=== PATIENT | female | born 1960 | race Caucasian/White ===

== ENCOUNTER 2019-04-03 14:47 | Inpatient (IN) ==
[2019-04-03] MEDS ORDERED: Ondansetron 4 MG/2 ML VIAL IVP ONE (15:11)
[2019-04-03] MEDS ORDERED: *HR* OxyCODONE/APAP 10/325 TABLET PO ONE (15:35)
[2019-04-03 15:40] LABS: Basophils # 0.1 K/mcL (0.0-0.2); Basophils % 0.9 %; Eosinophils # 0.1 K/mcL (0.0-0.6); Eosinophils % 0.9 %; Hematocrit 48.1 % (35.3-44.9); Hemoglobin 15.7 g/dL (11.5-15.4); Immature Granulocytes % 0.6 % (0-4); Lymphocytes # 0.9 K/mcL (0.6-4.6); Lymphocytes % 13.1 %; Mean Corpuscular HGB Conc 32.6 g/dL (31.6-35.5); Mean Corpuscular Hemoglobin 30.6 pg (28.0-33.3); Mean Corpuscular Volume 93.8 fL (83.0-100.0); Mean Platelet Volume 12.7 fL (9.4-12.4); Monocytes # 0.3 K/mcL (0.0-1.3); Monocytes % 4.9 %; Neutrophils # 5.4 K/mcL (1.6-8.9); Platelet Count 127 K/mcL (140-400); Red Blood Count 5.13 M/mcL (3.82-4.97); Red Cell Distribution Width 14.4 % (11.5-14.5); Segmented Neutrophils % 79.6 %; White Blood Count 6.8 K/mcL (4.3-11.1)
[2019-04-03] MEDS: 0.9 % Sodium Chloride 1,000 ML IVC SCH ×3 (15:46→21:41)
[2019-04-03 15:57] LABS: Albumin 3.5 g/dL (3.5-5.7); Albumin/Globulin Ratio 1.6 (1.1-2.2); Bilirubin,Total 0.7 mg/dL (0.3-1.0); Calcium 8.3 mg/dL (8.6-10.3); Globulin 2.2 g/dL (2.4-3.5); Potassium 3.7 mEq/L (3.5-5.1); Total Protein 5.7 g/dL (6.4-8.9)
[2019-04-03 16:14] LABS: Platelet Estimate Normal (Normal)
[2019-04-03 16:27] LABS: Bilirubin,Urine Negative (Negative); Blood,Urine Large (Negative); Clarity,Urine Clear (Clear); Color,Urine Yellow (Yellow); Glucose,Urine (UA) 250 mg/dL (Normal); Ketones,Urine Negative (Negative); Leukocyte Esterase,Urine Trace (Negative); Nitrite,Urine Negative (Negative); PH,Urine 5.5 pH Units (5.0-8.0); Protein,Urine 100 mg/dL (Neg-Trace); Specific Gravity,Urine 1.018 (1.010-1.025); Urobilinogen,Urine Normal (Normal)
[2019-04-03 16:29] LABS: Bacteria,Urine None Seen per hpf (None-Few); Hyaline Casts,Urine None Seen per lpf (None-Few); RBC,Urine TNTC per hpf (0-3); Squamous Epithelial Cell,Urine Many per lpf (None-Few)
[2019-04-03] MEDS ORDERED: Naloxone 0.4 MG/ML INJ IVP PRN (17:07)
[2019-04-03] MEDS ORDERED: Acetaminophen 325 MG TABLET PO PRN (17:07)
[2019-04-03] MEDS ORDERED: *HR* Metoprolol 5 MG/5 ML VIAL IVP PRN (17:45)
[2019-04-03] MEDS ORDERED: cefTRIAXone 2,000 MG in Water for inj. (sterile) 20 ML IVP SCH (18:00)
[2019-04-03] MEDS ORDERED: traMADol 50 MG TABLET PO ONE (21:08)
[2019-04-04] MEDS: Ondansetron 4 MG/2 ML VIAL IVP PRN (02:00)
[2019-04-04 02:44] LABS: Basophils % 0.6 %; Eosinophils % 0.4 %; Hematocrit 44.8 % (35.3-44.9); Hemoglobin 14.3 g/dL (11.5-15.4); Immature Granulocytes % 0.9 % (0-4); Lymphocytes # 0.6 K/mcL (0.6-4.6); Lymphocytes % 13.6 %; Mean Corpuscular HGB Conc 31.9 g/dL (31.6-35.5); Mean Corpuscular Hemoglobin 30.2 pg (28.0-33.3); Mean Corpuscular Volume 94.5 fL (83.0-100.0); Monocytes # 0.5 K/mcL (0.0-1.3); Monocytes % 9.6 %; Neutrophils # 3.5 K/mcL (1.6-8.9); Platelet Count 106 K/mcL (140-400); Red Blood Count 4.74 M/mcL (3.82-4.97); Red Cell Distribution Width 14.5 % (11.5-14.5); Segmented Neutrophils % 74.9 %; White Blood Count 4.7 K/mcL (4.3-11.1)
[2019-04-04 03:05] LABS: Adenovirus F 40/41 PCR Not detected (Not detect); Astrovirus PCR Not detected (Not detect); C.difficile Toxin A/B Gene PCR Not detected (Not detect); Campylobacter by PCR Not detected (Not detect); Cryptosporidium by PCR Not detected (Not detect); Cyclospora cayetanensis PCR Not detected (Not detect); E. coli O157 by PCR Not detected (Not detect); Entamoeba histolytica PCR Not detected (Not detect); Enteroaggregative E.coli(EAEC) Not detected (Not detect); Enteropathogenic E.coli(EPEC) Not detected (Not detect); Enterotoxigenic E.coli (ETEC) Not detected (Not detect); Giardia lamblia PCR Not detected (Not detect); Norovirus GI/GII PCR Not detected (Not detect); Plesiomonas shigelloides PCR Not detected (Not detect); Rotavirus A PCR Not detected (Not detect); Salmonella PCR Not detected (Not detect); Sapovirus PCR Not detected (Not detect); Shig/EnteroinvasiveE coli EIEC Not detected (Not detect); Shigalike tox-prod E coli STEC Not detected (Not detect); Vibrio PCR Not detected (Not detect); Vibrio cholerae PCR Not detected (Not detect); Yersinia enterocolitica PCR Not detected (Not detect)
[2019-04-04 03:06] LABS: Calcium 8.1 mg/dL (8.6-10.3); Magnesium 2.1 mg/dL (1.6-2.6); Phosphorous 4.6 mg/dL (2.7-4.5); Potassium 3.8 mEq/L (3.5-5.1)
[2019-04-04 03:08] LABS: Platelet Estimate Decreased (Normal)
[2019-04-04] MEDS ORDERED: Acetaminophen IV 1,000 MG/100 ML INFUS..BTL IVPB ONE (04:52)
[2019-04-04] MEDS: 0.9 % Sodium Chloride 1,000 ML IVC SCH (08:29)
[2019-04-04] MEDS ORDERED: cefTRIAXone 2,000 MG in 0.9 % Sodium Chloride Mini Bag 100 ML IVPB SCH (09:00)
[2019-04-04] MEDS: Diltiazem CD (24hr) 180 MG CAPSULE PO SCH (12:06)
[2019-04-04] MEDS: *HR* OxyCODONE Immed Rel 5 MG TABLET PO PRN ×2 (12:32→20:08)
[2019-04-04] MEDS: Nystatin SUSP 5 ML UD.LIQ PO SCH ×2 (12:33→19:36)
[2019-04-04] MEDS ORDERED: traZODone 50 MG TABLET PO PRN (18:32)
[2019-04-04] MEDS: FLUoxetine 20 MG CAPSULE PO SCH (20:07)
[2019-04-04] MEDS: Ringers Solution, Lactated 1,000 ML IVC SCH (20:21)
[2019-04-05] MEDS: Nystatin SUSP 5 ML UD.LIQ PO SCH ×4 (01:23→16:15)
[2019-04-05] MEDS: Ondansetron 4 MG/2 ML VIAL IVP PRN (03:38)
[2019-04-05] MEDS: *HR* OxyCODONE Immed Rel 5 MG TABLET PO PRN ×4 (03:38→22:39)
[2019-04-05] MEDS: Ringers Solution, Lactated 1,000 ML IVC SCH ×2 (03:39→16:22)
[2019-04-05 04:11] LABS: Basophils % 0.3 %; Eosinophils # 0.1 K/mcL (0.0-0.6); Eosinophils % 0.7 %; Hematocrit 46.1 % (35.3-44.9); Hemoglobin 14.9 g/dL (11.5-15.4); Immature Granulocytes % 3.4 % (0-4); Lymphocytes % 14.3 %; Mean Corpuscular HGB Conc 32.3 g/dL (31.6-35.5); Mean Corpuscular Hemoglobin 30.8 pg (28.0-33.3); Mean Corpuscular Volume 95.4 fL (83.0-100.0); Mean Platelet Volume 12.3 fL (9.4-12.4); Monocytes # 1.1 K/mcL (0.0-1.3); Neutrophils # 4.8 K/mcL (1.6-8.9); Platelet Count 169 K/mcL (140-400); Red Blood Count 4.83 M/mcL (3.82-4.97); Red Cell Distribution Width 14.5 % (11.5-14.5); Segmented Neutrophils % 66.3 %
[2019-04-05 04:14] LABS: White Blood Count 7.2 K/mcL (4.3-11.1)
[2019-04-05 04:30] LABS: Calcium 8.9 mg/dL (8.6-10.3); Magnesium 1.8 mg/dL (1.6-2.6); Potassium 4.2 mEq/L (3.5-5.1)
[2019-04-05 05:34] LABS: Platelet Estimate Normal (Normal); Reactive Lymphocytes Present (Not Present)
[2019-04-05] MEDS: Diltiazem CD (24hr) 180 MG CAPSULE PO SCH (09:29)
[2019-04-05] MEDS: FLUoxetine 20 MG CAPSULE PO SCH ×2 (09:30→22:39)
[2019-04-06] MEDS: *HR* OxyCODONE Immed Rel 5 MG TABLET PO PRN ×3 (04:13→17:48)
[2019-04-06] MEDS: Ringers Solution, Lactated 1,000 ML IVC SCH ×2 (06:28→20:58)
[2019-04-06 07:28] LABS: Calcium 9.3 mg/dL (8.6-10.3); Magnesium 2.1 mg/dL (1.6-2.6); Potassium 4.2 mEq/L (3.5-5.1)
[2019-04-06] MEDS: Nystatin SUSP 5 ML UD.LIQ PO SCH ×5 (08:39→22:37)
[2019-04-06] MEDS: FLUoxetine 20 MG CAPSULE PO SCH ×2 (08:59→22:37)
[2019-04-06] MEDS: Diltiazem CD (24hr) 180 MG CAPSULE PO SCH (09:22)
[2019-04-06] MEDS: Ondansetron 4 MG/2 ML VIAL IVP PRN (17:49)
[2019-04-07] MEDS: *HR* OxyCODONE Immed Rel 5 MG TABLET PO PRN ×3 (00:50→19:29)
[2019-04-07 06:37] LABS: BUN/Creatinine Ratio 11 (6-26); Blood Urea Nitrogen 39 mg/dL (6-20); Calcium 9.3 mg/dL (8.6-10.3); Carbon Dioxide 26 mEq/L (23-29); Chloride 106 mEq/L (98-107); Glucose 123 mg/dL (70-105); Osmolality,Calculated 299 (280-300); Potassium 3.9 mEq/L (3.5-5.1); Sodium 139 mEq/L (136-145); eGFR For African Americans 16 (> 60); eGFR For Non-African Americans 13 (> 60)
[2019-04-07] MEDS: Nystatin SUSP 5 ML UD.LIQ PO SCH ×4 (07:39→21:24)
[2019-04-07] MEDS: Diltiazem CD (24hr) 180 MG CAPSULE PO SCH (08:07)
[2019-04-07] MEDS: FLUoxetine 20 MG CAPSULE PO SCH ×2 (08:07→21:24)
[2019-04-07] MEDS: Ringers Solution, Lactated 1,000 ML IVC SCH ×2 (08:08→21:29)
[2019-04-07 14:21] LABS: Creatine Kinase < 10 Units/L (30-223); Uric Acid 7.4 mg/dL (2.3-7.6)
[2019-04-07] MEDS: Ondansetron 4 MG/2 ML VIAL IVP PRN (19:24)
[2019-04-07 19:39] LABS: Sodium, Urine 22.9 mEq/L
[2019-04-07] MEDS: Nystatin POWDER 30 GM BOTTLE TP SCH (22:30)
[2019-04-08] MEDS: *HR* OxyCODONE Immed Rel 5 MG TABLET PO PRN ×3 (04:29→20:16)
[2019-04-08 04:55] LABS: Calcium 9.4 mg/dL (8.6-10.3); Potassium 3.9 mEq/L (3.5-5.1)
[2019-04-08] MEDS: Nystatin SUSP 5 ML UD.LIQ PO SCH ×4 (07:43→23:04)
[2019-04-08] MEDS: Diltiazem CD (24hr) 180 MG CAPSULE PO SCH (09:05)
[2019-04-08] MEDS: Nystatin POWDER 30 GM BOTTLE TP SCH ×2 (09:05→20:20)
[2019-04-08] MEDS: FLUoxetine 20 MG CAPSULE PO SCH ×2 (09:05→20:16)
[2019-04-08] MEDS: Ringers Solution, Lactated 1,000 ML IVC SCH ×3 (10:48→20:16)
[2019-04-08] MEDS: Ondansetron 4 MG/2 ML VIAL IVP PRN (12:19)
[2019-04-08] MEDS ORDERED: *HR* Promethazine 25 MG/ML VIAL IVP ONE (14:29)
[2019-04-09] MEDS: Ringers Solution, Lactated 1,000 ML IVC SCH ×2 (04:09→12:27)
[2019-04-09] MEDS: *HR* OxyCODONE Immed Rel 5 MG TABLET PO PRN ×2 (04:14→10:23)
[2019-04-09 06:23] LABS: Calcium 9.2 mg/dL (8.6-10.3); Potassium 3.8 mEq/L (3.5-5.1)
[2019-04-09] MEDS: Nystatin SUSP 5 ML UD.LIQ PO SCH ×2 (08:39→12:22)
[2019-04-09] MEDS: Diltiazem CD (24hr) 180 MG CAPSULE PO SCH (08:46)
[2019-04-09] MEDS: FLUoxetine 20 MG CAPSULE PO SCH (08:46)
[2019-04-09] MEDS: Nystatin POWDER 30 GM BOTTLE TP SCH (10:11)
[2019-04-09 11:59] VITALS: BP 122/70
== END 2019-04-09 15:14 | disposition home or self-care (01) | DRG 469 ==
LOC: 2ANU 14:47 → EMEROOARM 14:47 → SUATTDRO 17:11 → 2ANU 19:36 → SUATTDRO 04-06 18:19
PROVIDERS: ADMIT Internal Medicine; ATTEND Family Medicine

== ENCOUNTER 2021-04-30 12:30 | Inpatient (IN) ==
[2021-04-30] MEDS ORDERED: Ondansetron ODT 4 MG TAB.RAPDIS SL PRN (16:42)
[2021-04-30] MEDS ORDERED: MOM Conc 10 ML UD.LIQ PO PRN (16:42)
[2021-04-30] MEDS ORDERED: Naloxone 0.4 MG/ML INJ IVP PRN (16:42)
[2021-04-30] MEDS ORDERED: Melatonin 3 MG TABLET PO PRN (16:42)
[2021-04-30] MEDS ORDERED: Remdesivir 200 MG in 0.9 % Sodium Chloride 100 ML IVPB ONE (16:54)
[2021-04-30] MEDS ORDERED: cefTRIAXone 1,000 MG in 0.9 % Sodium Chloride Mini Bag 100 ML IVPB SCH (17:00)
[2021-04-30] MEDS ORDERED: *HR* Heparin 5,000 UNIT/ML VIAL IVP ONE (17:08)
[2021-04-30] MEDS ORDERED: *HR* Heparin 5,000 UNIT/ML VIAL IVP PRN ×2 (17:08)
[2021-04-30] MEDS ORDERED: Bisacodyl 10 MG RECTAL SUPPOSITORY RC PRN (17:26)
[2021-04-30] MEDS: Buprenorphine Hcl/Naloxone Hcl [Suboxone 8 Mg-2 Mg] PO SCH (17:56)
[2021-04-30 18:08] LABS: Hemoglobin 11.4 g/dL (11.5-15.4); Mean Corpuscular HGB Conc 29.2 g/dL (31.6-35.5); Mean Corpuscular Hemoglobin 24.8 pg (28.0-33.3); Mean Platelet Volume 10.2 fL (9.4-12.4); Platelet Count 136 K/mcL (140-400); Red Blood Count 4.59 M/mcL (3.82-4.97); White Blood Count 4.6 K/mcL (4.3-11.1)
[2021-04-30] MEDS: Azithromycin 500 MG in 0.9 % Sodium Chloride 250 ML IVPB SCH (18:26)
[2021-04-30] MEDS: Heparin 25,000 UNIT/250 ML 25,000 UNIT/250 ML IV.SOLN IVC SCH (18:27)
[2021-04-30] MEDS: polyethylene glycoL 3350 17 GM POWD.PACK PO SCH (18:28)
[2021-04-30] MEDS: 0.9 % Sodium Chloride 1,000 ML IVC SCH (18:28)
[2021-04-30 18:37] LABS: INR 1.1; Prothrombin Time 12.7 Seconds (9.4-12.1)
[2021-04-30 18:39] LABS: Heparin anti-factor XA UFH < 0.04 IU/mL (0.30-0.70)
[2021-04-30 18:40] LABS: D-Dimer 1019 ng/mLFEU (0-500)
[2021-04-30 20:13] LABS: Albumin 3.2 g/dL (3.5-5.7); Albumin/Globulin Ratio 0.9 (1.1-2.2); Bilirubin,Total 1.2 mg/dL (0.3-1.0); Calcium 8.7 mg/dL (8.6-10.3); Globulin 3.6 g/dL (2.4-3.5); Potassium 3.6 mEq/L (3.5-5.1); Total Protein 6.8 g/dL (6.4-8.9)
[2021-04-30 21:24] LABS: Hematocrit 38.3 % (35.3-44.9)
[2021-05-01 00:36] LABS: Hematocrit 37.5 % (35.3-44.9); Hemoglobin 11.1 g/dL (11.5-15.4)
[2021-05-01 00:58] LABS: Albumin 3.1 g/dL (3.5-5.7); Albumin/Globulin Ratio 0.9 (1.1-2.2); Bilirubin,Direct 0.4 mg/dL (0.0-0.2); Bilirubin,Indirect 0.8 mg/dL (0.0-1.0); Bilirubin,Total 1.2 mg/dL (0.3-1.0); Globulin 3.3 g/dL (2.4-3.5); Total Protein 6.4 g/dL (6.4-8.9)
[2021-05-01] MEDS ORDERED: *HR* Enoxaparin 40 MG/0.4 ML SYRINGE SQ SCH (06:00)
[2021-05-01 07:18] LABS: Hematocrit 40.1 % (35.3-44.9); Hemoglobin 11.6 g/dL (11.5-15.4); Mean Corpuscular HGB Conc 28.9 g/dL (31.6-35.5); Mean Corpuscular Hemoglobin 24.6 pg (28.0-33.3); Mean Corpuscular Volume 85.1 fL (83.0-100.0); Mean Platelet Volume 10.2 fL (9.4-12.4); Platelet Count 140 K/mcL (140-400); Red Blood Count 4.71 M/mcL (3.82-4.97); White Blood Count 5.1 K/mcL (4.3-11.1)
[2021-05-01] MEDS: 0.9 % Sodium Chloride 1,000 ML IVC SCH ×2 (07:52→23:23)
[2021-05-01] MEDS: DilTIAZem CD (24hr) 240 MG CAP.ER.24H PO SCH (07:52)
[2021-05-01] MEDS: polyethylene glycoL 3350 17 GM POWD.PACK PO SCH (08:03)
[2021-05-01] MEDS: Venlafaxine XR (24 HR) 75 MG CAP.ER.24H PO SCH (08:06)
[2021-05-01] MEDS: Heparin 25,000 UNIT/250 ML 25,000 UNIT/250 ML IV.SOLN IVC SCH ×2 (08:07→16:20)
[2021-05-01] MEDS: Buprenorphine Hcl/Naloxone Hcl [Suboxone 8 Mg-2 Mg] PO SCH ×2 (09:16→09:40)
[2021-05-01] MEDS: Ipratropium 1 PUFF INHALER IH SCH ×4 (11:40→23:02)
[2021-05-01] MEDS ORDERED: Ipratropium/Albuterol Neb 3 ML IH SCH (12:00)
[2021-05-01] MEDS ORDERED: Acetaminophen 325 MG TABLET PO PRN (17:15)
[2021-05-01] MEDS: cefTRIAXone 2,000 MG in 0.9 % Sodium Chloride Mini Bag 100 ML IVP SCH (17:46)
[2021-05-01] MEDS: Remdesivir 100 MG in 0.9 % Sodium Chloride 100 ML IVPB SCH (18:10)
[2021-05-01] MEDS: Azithromycin 500 MG in 0.9 % Sodium Chloride 250 ML IVPB SCH (18:16)
[2021-05-01] MEDS ORDERED: Isovue-370 500 ML BOTTLE IVP ONE (18:43)
[2021-05-01] MEDS ORDERED: Milk and Molasses Enema 200 ML RC ONE (18:56)
[2021-05-01 19:21] LABS: Albumin 3.1 g/dL (3.5-5.7); Albumin/Globulin Ratio 0.9 (1.1-2.2); Calcium 8.5 mg/dL (8.6-10.3); Globulin 3.3 g/dL (2.4-3.5); Potassium 3.4 mEq/L (3.5-5.1); Total Protein 6.4 g/dL (6.4-8.9)
[2021-05-01] MEDS: Ascorbic Acid 500 MG TABLET PO SCH ×2 (20:29→20:33)
[2021-05-01] MEDS ORDERED: Isovue-370 500 ML BOTTLE PO ONE (22:27)
[2021-05-02] MEDS: Ipratropium 1 PUFF INHALER IH SCH ×4 (04:09→16:46)
[2021-05-02 04:51] LABS: Hematocrit 35.4 % (35.3-44.9); Hemoglobin 10.3 g/dL (11.5-15.4); Mean Corpuscular HGB Conc 29.1 g/dL (31.6-35.5); Mean Corpuscular Hemoglobin 24.8 pg (28.0-33.3); Mean Corpuscular Volume 85.3 fL (83.0-100.0); Mean Platelet Volume 10.4 fL (9.4-12.4); Platelet Count 136 K/mcL (140-400); Red Blood Count 4.15 M/mcL (3.82-4.97); White Blood Count 5.6 K/mcL (4.3-11.1)
[2021-05-02 05:08] LABS: Albumin 3.1 g/dL (3.5-5.7); Calcium 8.7 mg/dL (8.6-10.3); INR 1.3; Potassium 3.3 mEq/L (3.5-5.1); Prothrombin Time 14.1 Seconds (9.4-12.1); Total Protein 6.1 g/dL (6.4-8.9)
[2021-05-02 05:12] LABS: Lactate Dehydrogenase 159 Units/L (140-271)
[2021-05-02 05:27] LABS: Ferritin 51 ng/mL (10-120)
[2021-05-02] MEDS: Ascorbic Acid 500 MG TABLET PO SCH ×2 (08:16→20:16)
[2021-05-02] MEDS: Zinc Sulfate 220 MG CAPSULE PO SCH (08:16)
[2021-05-02] MEDS: Folic Acid 1 MG TABLET PO SCH (08:16)
[2021-05-02] MEDS: DilTIAZem CD (24hr) 240 MG CAP.ER.24H PO SCH (08:16)
[2021-05-02] MEDS: Venlafaxine XR (24 HR) 75 MG CAP.ER.24H PO SCH (08:16)
[2021-05-02] MEDS: Buprenorphine Hcl/Naloxone Hcl [Suboxone 8 Mg-2 Mg] PO SCH (08:17)
[2021-05-02] MEDS: polyethylene glycoL 3350 17 GM POWD.PACK PO SCH (08:17)
[2021-05-02] MEDS: 0.9 % Sodium Chloride 1,000 ML IVC SCH ×2 (08:18→11:46)
[2021-05-02] MEDS: Heparin 25,000 UNIT/250 ML 25,000 UNIT/250 ML IV.SOLN IVC SCH (11:40)
[2021-05-02] MEDS: 0.9 % Sodium Chloride w KCl 20 MEQ/1,000 ML MLS IVC SCH (12:52)
[2021-05-02] MEDS ORDERED: *HR* Warfarin 5 MG TABLET PO ONE (18:00)
[2021-05-02] MEDS: cefTRIAXone 2,000 MG in 0.9 % Sodium Chloride Mini Bag 100 ML IVP SCH (18:00)
[2021-05-02] MEDS: Remdesivir 100 MG in 0.9 % Sodium Chloride 100 ML IVPB SCH (18:06)
[2021-05-02] MEDS: Azithromycin 500 MG in 0.9 % Sodium Chloride 250 ML IVPB SCH (18:13)
[2021-05-02] MEDS: MetroNIDAZOLE 500 MG/100 ML 500 MG/100 ML BAG IVPB SCH (20:14)
[2021-05-03] MEDS: Ipratropium 1 PUFF INHALER IH SCH ×5 (04:02→21:26)
[2021-05-03] MEDS: MetroNIDAZOLE 500 MG/100 ML 500 MG/100 ML BAG IVPB SCH ×3 (04:36→19:49)
[2021-05-03] MEDS: 0.9 % Sodium Chloride w KCl 20 MEQ/1,000 ML MLS IVC SCH ×2 (04:38→15:36)
[2021-05-03] MEDS: DilTIAZem CD (24hr) 240 MG CAP.ER.24H PO SCH (09:56)
[2021-05-03] MEDS: Folic Acid 1 MG TABLET PO SCH (09:56)
[2021-05-03] MEDS: Zinc Sulfate 220 MG CAPSULE PO SCH (09:56)
[2021-05-03] MEDS: Ascorbic Acid 500 MG TABLET PO SCH ×3 (09:56→20:08)
[2021-05-03] MEDS: polyethylene glycoL 3350 17 GM POWD.PACK PO SCH (10:09)
[2021-05-03] MEDS: Venlafaxine XR (24 HR) 75 MG CAP.ER.24H PO SCH (10:21)
[2021-05-03] MEDS: Buprenorphine Hcl/Naloxone Hcl [Suboxone 8 Mg-2 Mg] PO SCH (10:37)
[2021-05-03] MEDS ORDERED: *HR* Heparin 5,000 UNIT/ML VIAL IVP PRN ×2 (11:41)
[2021-05-03 12:01] LABS: Hemoglobin 10.6 g/dL (11.5-15.4); Red Cell Distribution Width 18.3 % (11.5-14.5)
[2021-05-03 12:02] LABS: Hematocrit 36.2 % (35.3-44.9); Mean Corpuscular HGB Conc 29.3 g/dL (31.6-35.5); Mean Corpuscular Hemoglobin 24.9 pg (28.0-33.3); Mean Corpuscular Volume 85.2 fL (83.0-100.0); Mean Platelet Volume 10.9 fL (9.4-12.4); Platelet Count 137 K/mcL (140-400); Red Blood Count 4.25 M/mcL (3.82-4.97); White Blood Count 6.7 K/mcL (4.3-11.1)
[2021-05-03 12:20] LABS: Heparin anti-factor XA UFH < 0.04 IU/mL (0.30-0.70); INR 1.3; Prothrombin Time 14.2 Seconds (9.4-12.1)
[2021-05-03 12:22] LABS: Activated Partial Thrombo Time 28.9 Seconds (26.0-36.0); Albumin 3.2 g/dL (3.5-5.7); Bilirubin,Total 1.1 mg/dL (0.3-1.0); Calcium 8.9 mg/dL (8.6-10.3); Globulin 3.1 g/dL (2.4-3.5); Potassium 3.7 mEq/L (3.5-5.1); Total Protein 6.3 g/dL (6.4-8.9)
[2021-05-03 12:23] LABS: D-Dimer 937 ng/mLFEU (0-500)
[2021-05-03] MEDS: Heparin 25,000 UNIT/250 ML 25,000 UNIT/250 ML IV.SOLN IVC SCH (15:31)
[2021-05-03] MEDS: Remdesivir 100 MG in 0.9 % Sodium Chloride 100 ML IVPB SCH (16:07)
[2021-05-03] MEDS: Azithromycin 500 MG in 0.9 % Sodium Chloride 250 ML IVPB SCH (17:06)
[2021-05-03] MEDS ORDERED: *HR* Warfarin 5 MG TABLET PO ONE (18:00)
[2021-05-03] MEDS ORDERED: Warfarin perPT PO PRN (18:00)
[2021-05-03] MEDS: cefTRIAXone 2,000 MG in 0.9 % Sodium Chloride Mini Bag 100 ML IVP SCH (18:28)
[2021-05-03] MEDS ORDERED: metroNIDAZOLE 500 MG TABLET PO SCH (21:00)
[2021-05-04] MEDS: Ipratropium 1 PUFF INHALER IH SCH ×3 (03:54→15:39)
[2021-05-04 04:34] LABS: Hematocrit 36.6 % (35.3-44.9); Hemoglobin 10.8 g/dL (11.5-15.4); Mean Corpuscular HGB Conc 29.5 g/dL (31.6-35.5); Mean Corpuscular Hemoglobin 25.2 pg (28.0-33.3); Mean Corpuscular Volume 85.3 fL (83.0-100.0); Platelet Count 108 K/mcL (140-400); Red Blood Count 4.29 M/mcL (3.82-4.97); Red Cell Distribution Width 18.4 % (11.5-14.5); White Blood Count 5.9 K/mcL (4.3-11.1)
[2021-05-04 04:50] LABS: Globulin 2.9 g/dL (2.4-3.5); Potassium 3.6 mEq/L (3.5-5.1); Total Protein 5.9 g/dL (6.4-8.9)
[2021-05-04 05:02] LABS: Heparin anti-factor XA UFH 0.86 IU/mL (0.30-0.70)
[2021-05-04 05:03] LABS: INR 1.8; Prothrombin Time 20.4 Seconds (9.4-12.1)
[2021-05-04 08:14] VITALS: BP 128/73; PULSE 74; TEMP 97.7
[2021-05-04] MEDS: Heparin 25,000 UNIT/250 ML 25,000 UNIT/250 ML IV.SOLN IVC SCH (08:24)
[2021-05-04] MEDS: DilTIAZem CD (24hr) 240 MG CAP.ER.24H PO SCH (08:27)
[2021-05-04] MEDS: Zinc Sulfate 220 MG CAPSULE PO SCH (08:27)
[2021-05-04] MEDS: Folic Acid 1 MG TABLET PO SCH (08:27)
[2021-05-04] MEDS: Ascorbic Acid 500 MG TABLET PO SCH (08:35)
[2021-05-04] MEDS: polyethylene glycoL 3350 17 GM POWD.PACK PO SCH (08:35)
[2021-05-04] MEDS: Venlafaxine XR (24 HR) 75 MG CAP.ER.24H PO SCH (08:44)
[2021-05-04] MEDS: Buprenorphine Hcl/Naloxone Hcl [Suboxone 8 Mg-2 Mg] PO SCH (08:44)
[2021-05-04] MEDS ORDERED: dexAMETHasone 4 MG TABLET PO SCH (09:00)
[2021-05-04] MEDS ORDERED: Azithromycin 250 MG TABLET PO SCH (09:00)
[2021-05-04 11:36] VITALS: O2SAT 93
[2021-05-04] MEDS ORDERED: FLU Vac QV 21-22 (6Month+)/PF 0.5 ML SYRINGE IM ONE (15:05)
[2021-05-04] MEDS ORDERED: *HR* Warfarin 3 MG TABLET PO ONE (18:00)
== END 2021-05-04 16:16 | disposition home or self-care (01) | DRG 137 ==
LOC: 3ANU → SUATTDRO 17:13
PROVIDERS: ADMIT Hospitalist; ATTEND Family Medicine

== ENCOUNTER 2021-07-26 12:29 | Inpatient (IN) ==
[~2021-07-26 12:29] MED LIST: *HR* Buprenorphine HCl 8 MG TAB.SUBL SL SCH
[2021-07-26 14:08] LABS: Basophils % 0.3 %; Immature Granulocytes % 0.3 % (0-4)
[2021-07-26 14:10] LABS: Eosinophils # 0.3 K/mcL (0.0-0.6); Eosinophils % 5.1 %; Hematocrit 18.6 % (35.3-44.9); Lymphocytes # 0.9 K/mcL (0.6-4.6); Lymphocytes % 14.6 %; Mean Corpuscular Hemoglobin 23.7 pg (28.0-33.3); Mean Corpuscular Volume 81.6 fL (83.0-100.0); Mean Platelet Volume 10.1 fL (9.4-12.4); Monocytes # 0.7 K/mcL (0.0-1.3); Monocytes % 12.1 %; Nucleated Red Blood Cells 0.5 /100 WBC (0); Platelet Count 185 K/mcL (140-400); Red Blood Count 2.28 M/mcL (3.82-4.97); Red Cell Distribution Width 18.5 % (11.5-14.5); Segmented Neutrophils % 67.6 %; White Blood Count 5.9 K/mcL (4.3-11.1)
[2021-07-26 14:15] LABS: INR 1.8; Prothrombin Time 20.5 Seconds (9.4-12.1)
[2021-07-26 14:18] LABS: Activated Partial Thrombo Time 38.3 Seconds (26.0-36.0)
[2021-07-26 14:18] LABS: Hemoglobin 5.4 g/dL (11.5-15.4)
[2021-07-26] MEDS ORDERED: MOM Conc 10 ML UD.LIQ PO PRN (15:03)
[2021-07-26] MEDS ORDERED: Mag Hydrox/Al Hydrox/Simeth 30 ML UDC PO PRN (15:03)
[2021-07-26] MEDS ORDERED: Naloxone 0.4 MG/ML INJ IVP PRN (15:03)
[2021-07-26] MEDS ORDERED: Melatonin 3 MG TABLET PO PRN (15:03)
[2021-07-26] MEDS ORDERED: Ondansetron ODT 4 MG TAB.RAPDIS SL PRN (15:03)
[2021-07-26] MEDS ORDERED: Perflutren Lipid Microsphere 1.3 ML in 0.9 % Sodium Chloride 8.7 ML IVP PRN (15:20)
[2021-07-26] MEDS ORDERED: Furosemide 20 MG/2 ML VIAL IVP ONE (15:44)
[2021-07-26 17:08] LABS: Bilirubin,Urine Negative (Negative); Blood,Urine Large (Negative); Clarity,Urine Turbid (Clear); Color,Urine Yellow (Yellow); Glucose,Urine (UA) Normal (Normal); Ketones,Urine Negative (Negative); Leukocyte Esterase,Urine Large (Negative); Nitrite,Urine Negative (Negative); PH,Urine 6.5 pH Units (5.0-8.0); Protein,Urine 100 mg/dL (Neg-Trace); RBC,Urine TNTC per hpf (0-3); Specific Gravity,Urine 1.013 (1.010-1.025); Squamous Epithelial Cell,Urine Few per hpf (None-Few); Urobilinogen,Urine Normal (Normal); WBC,Urine 30-50 per hpf (0-3)
[2021-07-26] MEDS: cefTRIAXone 1,000 MG in 0.9 % Sodium Chloride Mini Bag 100 ML IVPB SCH (19:39)
[2021-07-26] MEDS ORDERED: Azithromycin 500 MG in 0.9 % Sodium Chloride 250 ML IVPB SCH (20:00)
[2021-07-26 20:27] LABS: Hematocrit 21.4 % (35.3-44.9); Hemoglobin 6.3 g/dL (11.5-15.4)
[2021-07-26 20:48] LABS: Calcium 8.6 mg/dL (8.6-10.3); Potassium 3.3 mEq/L (3.5-5.1)
[2021-07-27] MEDS ORDERED: 0.9 % Sodium Chloride 250 ML ONE (00:07)
[2021-07-27 06:18] LABS: Hematocrit 22.7 % (35.3-44.9); Hemoglobin 6.7 g/dL (11.5-15.4)
[2021-07-27 06:39] LABS: Hematocrit 23.3 % (35.3-44.9); Mean Corpuscular Hemoglobin 24.7 pg (28.0-33.3); Mean Corpuscular Volume 82.3 fL (83.0-100.0); Mean Platelet Volume 10.8 fL (9.4-12.4); Platelet Count 204 K/mcL (140-400); Red Blood Count 2.83 M/mcL (3.82-4.97); Red Cell Distribution Width 17.8 % (11.5-14.5); White Blood Count 6.7 K/mcL (4.3-11.1)
[2021-07-27] MEDS ORDERED: 0.9 % Sodium Chloride 250 ML IVC SCH (07:45)
[2021-07-27 08:39] LABS: Albumin 2.7 g/dL (3.5-5.7); Albumin/Globulin Ratio 1.1 (1.1-2.2); Bilirubin,Total 1.5 mg/dL (0.3-1.0); Calcium 8.1 mg/dL (8.6-10.3); Globulin 2.4 g/dL (2.4-3.5); Potassium 3.5 mEq/L (3.5-5.1); Total Protein 5.1 g/dL (6.4-8.9)
[2021-07-27] MEDS: polyethylene glycoL 3350 17 GM POWD.PACK PO SCH (08:39)
[2021-07-27] MEDS: Sennosides/Docusate Sodium TABLET PO SCH ×2 (08:39→20:24)
[2021-07-27] MEDS ORDERED: Gabapentin 300 MG CAPSULE PO PRN (09:06)
[2021-07-27] MEDS: cefTRIAXone 1,000 MG in 0.9 % Sodium Chloride Mini Bag 100 ML IVPB SCH (13:08)
[2021-07-27 14:48] LABS: Basophils % 0.5 %; Eosinophils # 0.5 K/mcL (0.0-0.6); Eosinophils % 7.6 %; Hematocrit 22.1 % (35.3-44.9); Hemoglobin 6.9 g/dL (11.5-15.4); Immature Granulocytes % 0.3 % (0-4); Lymphocytes # 1.2 K/mcL (0.6-4.6); Lymphocytes % 18.1 %; Mean Corpuscular HGB Conc 31.2 g/dL (31.6-35.5); Mean Corpuscular Hemoglobin 25.4 pg (28.0-33.3); Mean Corpuscular Volume 81.3 fL (83.0-100.0); Mean Platelet Volume 10.3 fL (9.4-12.4); Monocytes # 0.7 K/mcL (0.0-1.3); Monocytes % 10.1 %; Neutrophils # 4.2 K/mcL (1.6-8.9); Platelet Count 196 K/mcL (140-400); Red Blood Count 2.72 M/mcL (3.82-4.97); Red Cell Distribution Width 17.9 % (11.5-14.5); Segmented Neutrophils % 63.4 %; White Blood Count 6.6 K/mcL (4.3-11.1)
[2021-07-27 15:13] LABS: % Iron Saturation 4 % (15-50); Iron 14 mcg/dL (50-170); Transferrin 266 mg/dL (203-362)
[2021-07-27] MEDS: Metoprolol XL (24 HR) Succ 50 MG TAB.ER.24H PO SCH (15:19)
[2021-07-27 15:31] LABS: Ferritin 13 ng/mL (10-120)
[2021-07-27 15:37] LABS: Folate 5.4 ng/mL (3.0-16.0)
[2021-07-27] MEDS: Furosemide 40 MG/4 ML VIAL IVP SCH (18:56)
[2021-07-27 22:33] LABS: Hematocrit 24.4 % (35.3-44.9); Hemoglobin 7.6 g/dL (11.5-15.4)
[2021-07-28] MEDS ORDERED: NALOXONE HCL SL SCH ×2 (09:00)
[2021-07-28] MEDS ORDERED: BUPRENORPHINE HCL SL SCH ×2 (09:00)
[2021-07-28] MEDS ORDERED: DilTIAZem CD (24hr) 240 MG CAP.ER.24H PO SCH (09:00)
[2021-07-28] MEDS: Sennosides/Docusate Sodium TABLET PO SCH ×2 (09:53→19:33)
[2021-07-28] MEDS: Metoprolol XL (24 HR) Succ 50 MG TAB.ER.24H PO SCH (09:53)
[2021-07-28] MEDS: polyethylene glycoL 3350 17 GM POWD.PACK PO SCH (09:55)
[2021-07-28] MEDS: Venlafaxine XR (24 HR) 75 MG CAP.ER.24H PO SCH (09:55)
[2021-07-28] MEDS: Furosemide 40 MG/4 ML VIAL IVP SCH (09:57)
[2021-07-28] MEDS ORDERED: Cyanocobalamin (B-12) 1,000 MCG/ML VIAL SQ ONE (12:52)
[2021-07-28 15:18] LABS: Basophils % 0.4 %; Eosinophils # 0.4 K/mcL (0.0-0.6); Eosinophils % 4.5 %; Hematocrit 27.7 % (35.3-44.9); Hemoglobin 8.3 g/dL (11.5-15.4); Immature Granulocytes % 0.3 % (0-4); Lymphocytes % 12.6 %; Mean Corpuscular Hemoglobin 24.8 pg (28.0-33.3); Mean Corpuscular Volume 82.7 fL (83.0-100.0); Mean Platelet Volume 10.5 fL (9.4-12.4); Monocytes # 0.9 K/mcL (0.0-1.3); Monocytes % 11.1 %; Neutrophils # 5.6 K/mcL (1.6-8.9); Platelet Count 191 K/mcL (140-400); Red Blood Count 3.35 M/mcL (3.82-4.97); Red Cell Distribution Width 17.7 % (11.5-14.5); Segmented Neutrophils % 71.1 %; White Blood Count 7.8 K/mcL (4.3-11.1)
[2021-07-28 15:39] LABS: Calcium 8.7 mg/dL (8.6-10.3); Magnesium 1.8 mg/dL (1.6-2.6); Potassium 3.8 mEq/L (3.5-5.1)
[2021-07-28] MEDS: *HR* Buprenorphine HCl 8 MG TAB.SUBL SL SCH (15:42)
[2021-07-28] MEDS: *HR* Buprenorphine HCl 2 MG SUBLINGUAL TABLET SL SCH (15:42)
[2021-07-29 04:51] LABS: Basophils # 0.1 K/mcL (0.0-0.2); Basophils % 0.7 %; Eosinophils # 0.5 K/mcL (0.0-0.6); Eosinophils % 8.1 %; Hematocrit 26.4 % (35.3-44.9); Hemoglobin 7.8 g/dL (11.5-15.4); Immature Granulocytes % 0.3 % (0-4); Lymphocytes # 1.1 K/mcL (0.6-4.6); Lymphocytes % 16.9 %; Mean Corpuscular HGB Conc 29.5 g/dL (31.6-35.5); Mean Corpuscular Hemoglobin 24.8 pg (28.0-33.3); Mean Corpuscular Volume 84.1 fL (83.0-100.0); Monocytes # 0.7 K/mcL (0.0-1.3); Neutrophils # 4.2 K/mcL (1.6-8.9); Platelet Count 185 K/mcL (140-400); Red Blood Count 3.14 M/mcL (3.82-4.97); Red Cell Distribution Width 17.7 % (11.5-14.5); White Blood Count 6.7 K/mcL (4.3-11.1)
[2021-07-29 05:10] LABS: Calcium 8.7 mg/dL (8.6-10.3); Magnesium 1.8 mg/dL (1.6-2.6); Potassium 3.2 mEq/L (3.5-5.1)
[2021-07-29] MEDS ORDERED: Isovue-300 50ML VIAL ONE (07:20)
[2021-07-29] MEDS ORDERED: *HR* Rocuronium Bromide 50 MG/5 ML VIAL ONE (07:23)
[2021-07-29] MEDS ORDERED: Lidocaine HCL 4 ML Topical Solution (Laryng-O-Jet Kit Sterile Pak) TP ONE (07:23)
[2021-07-29] MEDS ORDERED: *HR* Succinylcholine 200 MG/10 ML VIAL IVP ONE (07:23)
[2021-07-29] MEDS ORDERED: Ondansetron 4 MG/2 ML VIAL ONE (07:23)
[2021-07-29] MEDS ORDERED: *HR* FentaNYL (PF) 100 MCG/2 ML VIAL ONE (07:23)
[2021-07-29] MEDS ORDERED: *HR* Propofol 200 MG/20 ML VIAL IVP ONE (07:24)
[2021-07-29] MEDS ORDERED: *HR* Midazolam HCl 2 MG/2 ML VIAL ONE (07:24)
[2021-07-29] MEDS: Metoprolol XL (24 HR) Succ 50 MG TAB.ER.24H PO SCH (07:29)
[2021-07-29] MEDS ORDERED: *HR* HYDROmorphone PF 0.5 MG/0.5 ML SYRINGE IVP PRN (07:45)
[2021-07-29] MEDS ORDERED: CeFAZolin Syr 2,000MG/20 ML 2,000 MG/20 ML SYRINGE IVPB ONE (07:45)
[2021-07-29] MEDS ORDERED: Sugammadex Sodium 200 MG/2 ML VIAL IV ONE (08:35)
[2021-07-29] MEDS ORDERED: Naloxone 0.4 MG/ML INJ IVP PRN (09:51)
[2021-07-29] MEDS ORDERED: Mag Hydrox/Al Hydrox/Simeth 30 ML UDC PO PRN (09:51)
[2021-07-29] MEDS ORDERED: Melatonin 3 MG TABLET PO PRN (09:51)
[2021-07-29] MEDS ORDERED: MOM Conc 10 ML UD.LIQ PO PRN (09:51)
[2021-07-29] MEDS ORDERED: 0.9 % Sodium Chloride 250 ML IVC SCH (09:51)
[2021-07-29] MEDS ORDERED: Ondansetron ODT 4 MG TAB.RAPDIS SL PRN (09:51)
[2021-07-29] MEDS ORDERED: Gabapentin 300 MG CAPSULE PO PRN (09:51)
[2021-07-29] MEDS ORDERED: Perflutren Lipid Microsphere 1.3 ML in 0.9 % Sodium Chloride 8.7 ML IVP PRN (09:51)
[2021-07-29] MEDS ORDERED: Lidocaine -MPF 2% 2 ML VIAL ONE (10:48)
[2021-07-29] MEDS: Sennosides/Docusate Sodium TABLET PO SCH ×3 (10:53→21:28)
[2021-07-29] MEDS: Venlafaxine XR (24 HR) 75 MG CAP.ER.24H PO SCH ×2 (10:53→11:05)
[2021-07-29] MEDS: polyethylene glycoL 3350 17 GM POWD.PACK PO SCH ×2 (10:53→11:06)
[2021-07-29] MEDS: *HR* Buprenorphine HCl 2 MG SUBLINGUAL TABLET SL SCH ×2 (10:54→11:05)
[2021-07-29] MEDS: *HR* Buprenorphine HCl 8 MG TAB.SUBL SL SCH ×2 (10:54→11:05)
[2021-07-29] MEDS ORDERED: *HR* Buprenorphine HCl 8 MG TAB.SUBL SL SCH (11:00)
[2021-07-30 04:53] LABS: Basophils % 0.1 %; Hematocrit 24.5 % (35.3-44.9); Hemoglobin 7.3 g/dL (11.5-15.4); Immature Granulocytes % 0.7 % (0-4); Lymphocytes # 0.8 K/mcL (0.6-4.6); Lymphocytes % 9.6 %; Mean Corpuscular HGB Conc 29.8 g/dL (31.6-35.5); Mean Corpuscular Hemoglobin 25.7 pg (28.0-33.3); Mean Corpuscular Volume 86.3 fL (83.0-100.0); Mean Platelet Volume 10.6 fL (9.4-12.4); Monocytes # 0.8 K/mcL (0.0-1.3); Monocytes % 9.2 %; Neutrophils # 6.5 K/mcL (1.6-8.9); Platelet Count 173 K/mcL (140-400); Red Blood Count 2.84 M/mcL (3.82-4.97); Red Cell Distribution Width 18.2 % (11.5-14.5); Segmented Neutrophils % 80.4 %; White Blood Count 8.1 K/mcL (4.3-11.1)
[2021-07-30 05:14] LABS: Calcium 8.9 mg/dL (8.6-10.3)
[2021-07-30] MEDS: *HR* Buprenorphine HCl 2 MG SUBLINGUAL TABLET SL SCH (09:31)
[2021-07-30] MEDS: polyethylene glycoL 3350 17 GM POWD.PACK PO SCH (09:31)
[2021-07-30] MEDS: *HR* Buprenorphine HCl 8 MG TAB.SUBL SL SCH (09:31)
[2021-07-30] MEDS: Venlafaxine XR (24 HR) 75 MG CAP.ER.24H PO SCH (09:31)
[2021-07-30] MEDS: Metoprolol XL (24 HR) Succ 50 MG TAB.ER.24H PO SCH (09:31)
[2021-07-30 11:12] LABS: Tissue Transglutaminase IgA <2 U/mL (0-3)
[2021-07-31 04:22] LABS: Basophils % 0.4 %; Eosinophils # 0.2 K/mcL (0.0-0.6); Eosinophils % 2.2 %; Hematocrit 24.6 % (35.3-44.9); Hemoglobin 7.3 g/dL (11.5-15.4); Immature Granulocytes % 0.6 % (0-4); Lymphocytes # 1.5 K/mcL (0.6-4.6); Lymphocytes % 17.5 %; Mean Corpuscular HGB Conc 29.7 g/dL (31.6-35.5); Mean Corpuscular Hemoglobin 26.1 pg (28.0-33.3); Mean Corpuscular Volume 87.9 fL (83.0-100.0); Mean Platelet Volume 10.3 fL (9.4-12.4); Monocytes # 0.8 K/mcL (0.0-1.3); Monocytes % 9.4 %; Neutrophils # 5.9 K/mcL (1.6-8.9); Platelet Count 160 K/mcL (140-400); Red Cell Distribution Width 19.2 % (11.5-14.5); Segmented Neutrophils % 69.9 %; White Blood Count 8.5 K/mcL (4.3-11.1)
[2021-07-31 04:40] LABS: Calcium 9.1 mg/dL (8.6-10.3); Magnesium 2.1 mg/dL (1.6-2.6); Potassium 3.9 mEq/L (3.5-5.1)
[2021-07-31] MEDS: polyethylene glycoL 3350 17 GM POWD.PACK PO SCH (09:09)
[2021-07-31] MEDS: Venlafaxine XR (24 HR) 75 MG CAP.ER.24H PO SCH (09:09)
[2021-07-31] MEDS: *HR* Buprenorphine HCl 8 MG TAB.SUBL SL SCH (09:09)
[2021-07-31] MEDS: *HR* Buprenorphine HCl 2 MG SUBLINGUAL TABLET SL SCH (09:09)
[2021-07-31] MEDS: Ondansetron 4 MG/2 ML VIAL IVP SCH ×3 (09:14→20:04)
[2021-07-31] MEDS: Metoprolol XL (24 HR) Succ 50 MG TAB.ER.24H PO SCH (11:15)
[2021-07-31] MEDS ORDERED: *HR* LORazepam 0.5 MG TABLET PO ONE (19:00)
[2021-07-31] MEDS ORDERED: *HR* LORazepam 0.5 MG TABLET PO PRN (19:00)
[2021-07-31] MEDS ORDERED: SODIUM CHLORIDE/NAHCO3/KCL/PEG 4,000 ML SOLN.RECON PO ONE (19:00)
[2021-08-01] MEDS: Ondansetron 4 MG/2 ML VIAL IVP SCH ×2 (00:01→05:19)
[2021-08-01 05:36] LABS: Basophils % 0.6 %; Eosinophils # 0.3 K/mcL (0.0-0.6); Hematocrit 25.6 % (35.3-44.9); Hemoglobin 7.5 g/dL (11.5-15.4); Immature Granulocytes % 0.4 % (0-4); Lymphocytes # 1.1 K/mcL (0.6-4.6); Lymphocytes % 16.2 %; Mean Corpuscular HGB Conc 29.3 g/dL (31.6-35.5); Mean Corpuscular Hemoglobin 26.3 pg (28.0-33.3); Mean Corpuscular Volume 89.8 fL (83.0-100.0); Mean Platelet Volume 10.1 fL (9.4-12.4); Monocytes # 0.9 K/mcL (0.0-1.3); Monocytes % 12.6 %; Neutrophils # 4.6 K/mcL (1.6-8.9); Platelet Count 137 K/mcL (140-400); Red Blood Count 2.85 M/mcL (3.82-4.97); Red Cell Distribution Width 20.2 % (11.5-14.5); Segmented Neutrophils % 66.2 %
[2021-08-01 05:55] LABS: Calcium 8.7 mg/dL (8.6-10.3); Magnesium 1.9 mg/dL (1.6-2.6); Potassium 3.9 mEq/L (3.5-5.1)
[2021-08-01] MEDS ORDERED: Albumin 25% 25gram/100mL 25 GM/100 ML IV.SOLN IVPB ONE (07:24)
[2021-08-01] MEDS: *HR* Buprenorphine HCl 8 MG TAB.SUBL SL SCH (07:55)
[2021-08-01] MEDS: *HR* Buprenorphine HCl 2 MG SUBLINGUAL TABLET SL SCH (07:55)
[2021-08-01] MEDS: Venlafaxine XR (24 HR) 75 MG CAP.ER.24H PO SCH (07:56)
[2021-08-01] MEDS: Metoprolol XL (24 HR) Succ 50 MG TAB.ER.24H PO SCH (07:56)
[2021-08-01] MEDS: polyethylene glycoL 3350 17 GM POWD.PACK PO SCH ×2 (07:56→07:59)
[2021-08-01] MEDS ORDERED: SODIUM CHLORIDE/NAHCO3/KCL/PEG 4,000 ML SOLN.RECON PO ONE (12:00)
[2021-08-01] MEDS ORDERED: *HR* Metoprolol 5 MG/5 ML VIAL IVP ONE (13:25)
[2021-08-01 13:34] LABS: Hematocrit 26.8 % (35.3-44.9); Hemoglobin 7.7 g/dL (11.5-15.4)
[2021-08-01] MEDS: Metoprolol XL (24 HR) Succ 25 MG TAB.ER.24H PO SCH (16:39)
[2021-08-02 05:40] LABS: Immature Granulocytes % 0.5 % (0-4); Red Cell Distribution Width 20.3 % (11.5-14.5)
[2021-08-02 05:41] LABS: Basophils % 0.2 %; Eosinophils # 0.3 K/mcL (0.0-0.6); Eosinophils % 5.2 %; Hemoglobin 7.1 g/dL (11.5-15.4); Lymphocytes # 0.8 K/mcL (0.6-4.6); Lymphocytes % 13.9 %; Mean Corpuscular HGB Conc 28.4 g/dL (31.6-35.5); Mean Corpuscular Hemoglobin 25.9 pg (28.0-33.3); Mean Corpuscular Volume 91.2 fL (83.0-100.0); Mean Platelet Volume 10.5 fL (9.4-12.4); Monocytes # 0.6 K/mcL (0.0-1.3); Platelet Count 110 K/mcL (140-400); Red Blood Count 2.74 M/mcL (3.82-4.97); Segmented Neutrophils % 69.2 %; White Blood Count 5.7 K/mcL (4.3-11.1)
[2021-08-02 05:43] LABS: Neutrophils # 3.9 K/mcL (1.6-8.9)
[2021-08-02 05:59] LABS: Calcium 8.6 mg/dL (8.6-10.3); Magnesium 1.8 mg/dL (1.6-2.6); Potassium 4.3 mEq/L (3.5-5.1)
[2021-08-02] MEDS: Metoprolol XL (24 HR) Succ 25 MG TAB.ER.24H PO SCH (08:58)
[2021-08-02] MEDS: *HR* Buprenorphine HCl 8 MG TAB.SUBL SL SCH (08:58)
[2021-08-02] MEDS: *HR* Buprenorphine HCl 2 MG SUBLINGUAL TABLET SL SCH (08:58)
[2021-08-02] MEDS: Venlafaxine XR (24 HR) 75 MG CAP.ER.24H PO SCH (08:58)
[2021-08-02] MEDS: polyethylene glycoL 3350 17 GM POWD.PACK PO SCH (08:58)
[2021-08-02] MEDS ORDERED: Lidocaine -MPF 2% 5 ML VIAL ONE (14:07)
[2021-08-02] MEDS ORDERED: *HR* Phenylephrine 10 MG/ML VIAL ONE (14:25)
[2021-08-03] MEDS ORDERED: 0.9 % Sodium Chloride 1,000 ML IV ONE (02:12)
[2021-08-03 04:24] LABS: Basophils % 0.4 %; Eosinophils # 0.4 K/mcL (0.0-0.6); Eosinophils % 6.6 %; Hematocrit 26.6 % (35.3-44.9); Hemoglobin 7.6 g/dL (11.5-15.4); Immature Granulocytes % 0.5 % (0-4); Immature Platelets 3.4 % (1.1-6.1); Lymphocytes # 0.6 K/mcL (0.6-4.6); Mean Corpuscular HGB Conc 28.6 g/dL (31.6-35.5); Mean Corpuscular Hemoglobin 26.1 pg (28.0-33.3); Mean Corpuscular Volume 91.4 fL (83.0-100.0); Mean Platelet Volume 10.3 fL (9.4-12.4); Monocytes # 0.6 K/mcL (0.0-1.3); Monocytes % 10.2 %; Neutrophils # 4.1 K/mcL (1.6-8.9); Nucleated Red Blood Cells 0.4 /100 WBC (0); Platelet Count 100 K/mcL (140-400); Red Blood Count 2.91 M/mcL (3.82-4.97); Red Cell Distribution Width 20.4 % (11.5-14.5); Segmented Neutrophils % 72.3 %; White Blood Count 5.6 K/mcL (4.3-11.1)
[2021-08-03 04:40] LABS: Calcium 8.6 mg/dL (8.6-10.3); Magnesium 1.8 mg/dL (1.6-2.6); Potassium 3.9 mEq/L (3.5-5.1)
[2021-08-03] MEDS: Venlafaxine XR (24 HR) 75 MG CAP.ER.24H PO SCH (08:42)
[2021-08-03] MEDS: *HR* Buprenorphine HCl 8 MG TAB.SUBL SL SCH (08:42)
[2021-08-03] MEDS: Metoprolol XL (24 HR) Succ 25 MG TAB.ER.24H PO SCH (08:42)
[2021-08-03] MEDS: Sennosides/Docusate Sodium TABLET PO SCH ×2 (08:42→21:08)
[2021-08-03] MEDS: *HR* Buprenorphine HCl 2 MG SUBLINGUAL TABLET SL SCH (08:42)
[2021-08-03] MEDS: polyethylene glycoL 3350 17 GM POWD.PACK PO SCH ×2 (08:47→21:08)
[2021-08-03 12:50] LABS: INR 1.4; Prothrombin Time 15.9 Seconds (9.4-12.1)
[2021-08-03] MEDS: Letrozole 2.5 MG TABLET PO SCH (17:45)
[2021-08-03] MEDS ORDERED: Warfarin perPT PO PRN (18:00)
[2021-08-03] MEDS ORDERED: *HR* Warfarin 5 MG TABLET PO ONE (18:00)
[2021-08-04] MEDS: *HR* Buprenorphine HCl 8 MG TAB.SUBL SL SCH (07:49)
[2021-08-04] MEDS: Metoprolol XL (24 HR) Succ 25 MG TAB.ER.24H PO SCH (07:50)
[2021-08-04] MEDS: Letrozole 2.5 MG TABLET PO SCH (07:50)
[2021-08-04] MEDS: *HR* Buprenorphine HCl 2 MG SUBLINGUAL TABLET SL SCH (07:50)
[2021-08-04] MEDS: polyethylene glycoL 3350 17 GM POWD.PACK PO SCH ×2 (07:50→20:44)
[2021-08-04] MEDS: Venlafaxine XR (24 HR) 75 MG CAP.ER.24H PO SCH (07:50)
[2021-08-04] MEDS: Sennosides/Docusate Sodium TABLET PO SCH ×2 (07:50→20:44)
[2021-08-04 09:13] LABS: Mean Corpuscular HGB Conc 28.3 g/dL (31.6-35.5); Monocytes % 13.1 %; Segmented Neutrophils % 62.9 %
[2021-08-04 09:15] LABS: Basophils % 0.5 %; Eosinophils # 0.4 K/mcL (0.0-0.6); Eosinophils % 8.7 %; Hematocrit 26.5 % (35.3-44.9); Hemoglobin 7.5 g/dL (11.5-15.4); Immature Granulocytes % 0.5 % (0-4); Lymphocytes # 0.6 K/mcL (0.6-4.6); Lymphocytes % 14.3 %; Mean Corpuscular Hemoglobin 25.9 pg (28.0-33.3); Mean Corpuscular Volume 91.4 fL (83.0-100.0); Mean Platelet Volume 10.4 fL (9.4-12.4); Monocytes # 0.6 K/mcL (0.0-1.3); Platelet Count 102 K/mcL (140-400); White Blood Count 4.4 K/mcL (4.3-11.1)
[2021-08-04 09:19] LABS: Neutrophils # 2.8 K/mcL (1.6-8.9)
[2021-08-04 09:25] LABS: INR 1.3; Prothrombin Time 14.9 Seconds (9.4-12.1)
[2021-08-04 09:31] LABS: Calcium 8.6 mg/dL (8.6-10.3); Magnesium 1.7 mg/dL (1.6-2.6); Potassium 3.8 mEq/L (3.5-5.1)
[2021-08-04 10:35] LABS: Anisocytosis 2+ (Not Present)
[2021-08-04 10:36] LABS: Hypochromasia Present (Not Present); Platelet Estimate Decreased (Normal)
[2021-08-04] MEDS ORDERED: *HR* Warfarin 7.5 MG TABLET PO ONE (18:00)
[2021-08-05 05:32] LABS: Basophils % 0.4 %; Eosinophils # 0.5 K/mcL (0.0-0.6); Eosinophils % 9.8 %; Hematocrit 27.6 % (35.3-44.9); Immature Granulocytes % 0.4 % (0-4); Mean Corpuscular Hemoglobin 26.3 pg (28.0-33.3); Mean Corpuscular Volume 90.8 fL (83.0-100.0); Mean Platelet Volume 10.1 fL (9.4-12.4); Monocytes # 0.6 K/mcL (0.0-1.3); Monocytes % 11.1 %; Neutrophils # 3.3 K/mcL (1.6-8.9); Platelet Count 110 K/mcL (140-400); Red Blood Count 3.04 M/mcL (3.82-4.97); Red Cell Distribution Width 21.2 % (11.5-14.5); Segmented Neutrophils % 60.3 %; White Blood Count 5.5 K/mcL (4.3-11.1)
[2021-08-05 05:41] LABS: INR 1.3
[2021-08-05 05:52] LABS: Calcium 8.8 mg/dL (8.6-10.3); Magnesium 1.7 mg/dL (1.6-2.6)
[2021-08-05 06:51] VITALS: BP 105/61; PULSE 108; TEMP 98.2; O2SAT 93
[2021-08-05] MEDS: *HR* Buprenorphine HCl 2 MG SUBLINGUAL TABLET SL SCH (07:44)
[2021-08-05] MEDS: Venlafaxine XR (24 HR) 75 MG CAP.ER.24H PO SCH (07:44)
[2021-08-05] MEDS: *HR* Buprenorphine HCl 8 MG TAB.SUBL SL SCH (07:45)
[2021-08-05] MEDS: Sennosides/Docusate Sodium TABLET PO SCH (07:45)
[2021-08-05] MEDS: Letrozole 2.5 MG TABLET PO SCH (07:45)
[2021-08-05] MEDS: polyethylene glycoL 3350 17 GM POWD.PACK PO SCH (07:45)
[2021-08-05] MEDS: Metoprolol XL (24 HR) Succ 25 MG TAB.ER.24H PO SCH (07:45)
[2021-08-05] MEDS ORDERED: *HR* Warfarin 7.5 MG TABLET PO ONE (18:00)
[2021-08-06 12:36] LABS: Gynecologic PAP Test Note (.); HPV Aptima Negative (Negative)
== END 2021-08-05 13:25 | disposition home health service (06) | DRG 663 ==
LOC: 2ANU 12:29 → EMEROOARM 12:29 → 2ANU 14:51 → SUATTDRO 15:22
PROVIDERS: ADMIT Hospitalist; ATTEND Pharmacist
PROC: ENDOEBX (2021-08-02 13:00)

== ENCOUNTER 2021-09-09 18:15 | Observation (INO) ==
[2021-09-09] MEDS ORDERED: Acetaminophen 325 MG TABLET PO PRN (22:41)
[2021-09-09] MEDS ORDERED: Naloxone 0.4 MG/ML INJ IVP PRN (22:41)
[2021-09-09] MEDS ORDERED: Ondansetron 4 MG/2 ML VIAL IVP PRN (22:41)
[2021-09-10] MEDS ORDERED: Furosemide 40 MG/4 ML VIAL IVP ONE (00:36)
[2021-09-10] MEDS: DilTIAZem 50 MG/50 ML IV.SOLN IVC SCH ×2 (01:10→08:27)
[2021-09-10 01:54] LABS: Basophils % 0.6 %; Eosinophils # 0.4 K/mcL (0.0-0.6); Eosinophils % 7.2 %; Hematocrit 30.7 % (35.3-44.9); Immature Granulocytes % 0.2 % (0-4); Lymphocytes # 1.2 K/mcL (0.6-4.6); Lymphocytes % 23.1 %; Mean Corpuscular HGB Conc 29.3 g/dL (31.6-35.5); Mean Corpuscular Hemoglobin 25.1 pg (28.0-33.3); Mean Corpuscular Volume 85.5 fL (83.0-100.0); Mean Platelet Volume 10.6 fL (9.4-12.4); Monocytes # 0.5 K/mcL (0.0-1.3); Monocytes % 9.7 %; Neutrophils # 3.1 K/mcL (1.6-8.9); Platelet Count 131 K/mcL (140-400); Red Blood Count 3.59 M/mcL (3.82-4.97); Red Cell Distribution Width 18.6 % (11.5-14.5); Segmented Neutrophils % 59.2 %; White Blood Count 5.3 K/mcL (4.3-11.1)
[2021-09-10 02:02] LABS: INR 1.3; Prothrombin Time 14.4 Seconds (9.4-12.1)
[2021-09-10 02:13] LABS: Albumin/Globulin Ratio 1.1 (1.1-2.2); Bilirubin,Direct 0.4 mg/dL (0.0-0.2); Bilirubin,Indirect 1.2 mg/dL (0.0-1.0); Bilirubin,Total 1.6 mg/dL (0.3-1.0); Calcium 9.7 mg/dL (8.6-10.3); Chol/HDL Ratio 2.7 (0-4.9); Globulin 2.8 g/dL (2.4-3.5); Magnesium 1.7 mg/dL (1.6-2.6); Phosphorous 3.8 mg/dL (2.7-4.5); Potassium 3.9 mEq/L (3.5-5.1); Total Protein 5.8 g/dL (6.4-8.9)
[2021-09-10 03:49] LABS: Bacteria,Urine Few per hpf (None-Few); Bilirubin,Urine Negative (Negative); Blood,Urine Large (Negative); Clarity,Urine Clear (Clear); Color,Urine Light-Yellow (Yellow); Glucose,Urine (UA) Normal (Normal); Hyaline Casts,Urine Few per lpf (None Seen); Ketones,Urine Negative (Negative); Leukocyte Esterase,Urine Moderate (Negative); Mucus,Urine Few per lpf (None-Few); Nitrite,Urine Negative (Negative); PH,Urine 6.5 pH Units (5.0-8.0); Protein,Urine 30 mg/dL (Neg-Trace); RBC,Urine TNTC per hpf (0-3); Specific Gravity,Urine 1.011 (1.010-1.025); Squamous Epithelial Cell,Urine Few per hpf (None-Few); Urobilinogen,Urine Normal (Normal)
[2021-09-10] MEDS: Metoprolol XL (24 HR) Succ 25 MG TAB.ER.24H PO SCH ×2 (07:58→08:00)
[2021-09-10] MEDS: cefTRIAXone 1,000 MG in 0.9 % Sodium Chloride 10 ML IVP SCH (07:58)
[2021-09-10] MEDS: Nystatin POWDER 30 GM BOTTLE TP SCH ×3 (07:59→21:05)
[2021-09-10] MEDS: *HR* OxyCODONE/APAP 5/325 TABLET PO PRN (10:49)
[2021-09-10] MEDS: Metoprolol XL (24 HR) Succ 50 MG TAB.ER.24H PO SCH (13:35)
[2021-09-11 02:31] LABS: Hematocrit 31.1 % (35.3-44.9); Hemoglobin 9.2 g/dL (11.5-15.4); Mean Corpuscular HGB Conc 29.6 g/dL (31.6-35.5); Mean Corpuscular Hemoglobin 25.1 pg (28.0-33.3); Mean Platelet Volume 10.7 fL (9.4-12.4); Platelet Count 141 K/mcL (140-400); Red Blood Count 3.66 M/mcL (3.82-4.97); Red Cell Distribution Width 18.9 % (11.5-14.5); White Blood Count 5.5 K/mcL (4.3-11.1)
[2021-09-11 02:44] LABS: Calcium 9.7 mg/dL (8.6-10.3); Potassium 3.6 mEq/L (3.5-5.1)
[2021-09-11] MEDS: *HR* OxyCODONE/APAP 5/325 TABLET PO PRN ×2 (08:29→15:11)
[2021-09-11] MEDS: Metoprolol XL (24 HR) Succ 50 MG TAB.ER.24H PO SCH (08:29)
[2021-09-11] MEDS: cefTRIAXone 1,000 MG in 0.9 % Sodium Chloride 10 ML IVP SCH (08:29)
[2021-09-11] MEDS: Nystatin POWDER 30 GM BOTTLE TP SCH ×3 (08:30→20:38)
[2021-09-11] MEDS ORDERED: Furosemide 20 MG TABLET PO SCH (09:00)
[2021-09-11] MEDS ORDERED: 0.9 % Sodium Chloride 250 ML IVC ONE (12:12)
[2021-09-12] MEDS: DilTIAZem 50 MG/50 ML IV.SOLN IVC SCH (01:40)
[2021-09-12 03:57] VITALS: BP 124/51; PULSE 97; TEMP 97.8; O2SAT 93
[2021-09-12 05:42] LABS: Hematocrit 31.6 % (35.3-44.9); Hemoglobin 9.1 g/dL (11.5-15.4); Mean Corpuscular HGB Conc 28.8 g/dL (31.6-35.5); Mean Corpuscular Hemoglobin 24.7 pg (28.0-33.3); Mean Corpuscular Volume 85.6 fL (83.0-100.0); Mean Platelet Volume 10.5 fL (9.4-12.4); Platelet Count 153 K/mcL (140-400); Red Blood Count 3.69 M/mcL (3.82-4.97); Red Cell Distribution Width 18.8 % (11.5-14.5); White Blood Count 5.5 K/mcL (4.3-11.1)
[2021-09-12 06:14] LABS: Calcium 9.7 mg/dL (8.6-10.3); Potassium 3.7 mEq/L (3.5-5.1)
[2021-09-12] MEDS: Metoprolol XL (24 HR) Succ 50 MG TAB.ER.24H PO SCH (08:31)
[2021-09-12] MEDS: cefTRIAXone 1,000 MG in 0.9 % Sodium Chloride 10 ML IVP SCH (08:31)
[2021-09-12] MEDS: Nystatin POWDER 30 GM BOTTLE TP SCH (08:32)
[2021-09-12] MEDS: *HR* OxyCODONE/APAP 5/325 TABLET PO PRN (08:37)
== END 2021-09-12 12:46 | disposition home health service (06) ==
LOC: 2NENU → SUATTDRO 21:12
PROVIDERS: ADMIT Internal Medicine; ATTEND Family Medicine